=== PATIENT | female | born 1950 | race Hispanic/Latino ===

== ENCOUNTER 2017-04-06 18:13 | Inpatient (IN) | payer OTHER, MEDICARE ==
[~2017-04-06] VITALS: Ht 157.5 cm; Wt 113.9 kg
[~2017-04-06 18:13] MED LIST: ADV500 IH; ALBU2.5V2 IH; BACL10TA PO; BIOT5000 PO; CRAN200C PO; CYCL30DR OU; DIPH25 PO; DOXE100C4 PO; FERR-82 PO; GABA-531 PO; HYDR200T4 PO; HYDR4TAB56 PO; IPRA4AER IH; METO-391 PO; MULT-1271 PO; NITR.4P TD; NITR0.4T50 SL; ONDA4TAB9 PO; PRAV40TA3 PO; RIVA20TA PO; SERT100T12 PO; TEMA30CA PO; VALA500T38 PO
[2017-04-06 19:05] LABS: HEMATOCRIT 30.6 % (36-48); MEAN CORPUSCULAR HEMOGLOBIN 30.7 pg (27.0-33.0); MEAN CORPUSCULAR HGB CONC 33.3 g/dL (32.0-36.0); MEAN CORPUSCULAR VOLUME 92.2 fL (79-99); PLATELET COUNT (AUTO) 286 K/uL (130-400); RED BLOOD CELL COUNT(AUTO) 3.32 MIL/uL (4.00-5.50); RED CELL DISTRIBUTION WIDTH 14.2 % (11.0-15.5); WHITE BLOOD COUNT (AUTO) 12.2 K/uL (4.8-10.8)
[2017-04-06 19:21] LABS: ALBUMIN 3.5 g/dL (3.5-5.0); BILIRUBIN,TOTAL 0.2 mg/dL (0.2-1.0); TOTAL PROTEIN, SERUM 7.3 g/dL (6.0-8.3)
[2017-04-06 19:25] LABS: POTASSIUM 2.9 mmol/L (3.5-5.1)
[2017-04-06 19:30] LABS: BAND NEUTROPHILS % (MANUAL) 1 % (0-2); LYMPHOCYTES % (MANUAL) 7 % (22-44); MAN.DIFF COMMENT-IMPRESSION MANUAL DIFFERENTIAL; METAMYELOCYTES % 1 % (0-0); MONOCYTES % (MANUAL) 5 % (2-9); SEGMENTED NEUTROPHILS % 86 % (40-70)
[2017-04-06 19:31] LABS: PLATELET MORPHOLOGY COMMENT ADEQUATE
[2017-04-06 19:42] LABS: INR 0.93 (0.85-1.15); PARTIAL THROMBOPLASTIN TIME 28.1 SEC (26.3-35.5); PROTHROMBIN TIME 9.8 SEC (9.6-11.6)
[2017-04-06] MEDS ORDERED: POTASSIUM BICARB/CIT AC 25 MEQ TABLET.EFF ONE (21:35)
[2017-04-06] MEDS ORDERED: HYDROMORPHONE HCL 0.5 MG/0.5 ML ML ONE (21:36)
[2017-04-06] MEDS ORDERED: SODIUM CHLORIDE 0.9% 1000ML 1,000 ML IV ONE (21:41)
[2017-04-06] MEDS ORDERED: ACETAMINOPHEN 325 MG TAB ONE (23:06)
[2017-04-07] MEDS ORDERED: HYDROMORPHONE HCL 0.5 MG/0.5 ML ML ONE (00:53)
[2017-04-07] MEDS: SODIUM CHLORIDE 0.9% 1000ML 1,000 ML IV SCH ×3 (00:53→21:31)
[2017-04-07] MEDS ORDERED: GUAIFENESIN-DM 200/20 MG 10 ML PO PRN (01:00)
[2017-04-07] MEDS ORDERED: HYDRALAZINE HCL 20 MG/ML VIAL IV PRN (01:00)
[2017-04-07] MEDS ORDERED: POTASSIUM CHLORIDE 10% ELIXIR 20 MEQ/15 ML UDCUP PO PRN (01:00)
[2017-04-07] MEDS ORDERED: HYDROMORPHONE 1 MG/1 ML AMP IV PRN (01:00)
[2017-04-07] MEDS ORDERED: ONDANSETRON HCL 4 MG/2 ML VIAL IV PRN (01:00)
[2017-04-07] MEDS ORDERED: DiphenhydrAMINE HCL 50 MG/ML VIAL IV PRN (01:00)
[2017-04-07] MEDS ORDERED: NITROGLYCERIN 0.4 MG SL TAB SL PRN (01:00)
[2017-04-07] MEDS ORDERED: DEXTROSE 50%-WATER 50 ML DISP.SYRIN IV PRN (01:00)
[2017-04-07] MEDS ORDERED: LACTULOSE 20 GM/30 ML UDCUP PO PRN (01:00)
[2017-04-07] MEDS ORDERED: GLUCAGON 1MG KIT 1 MG ML IM PRN (01:00)
[2017-04-07] MEDS: LIDOCAINE HCL-MPF 1% 2ML VIAL IVP PRN ×2 (02:34→23:30)
[2017-04-07] MEDS: POTASSIUM CHLORIDE 20MEQ/100ML 100 ML IV PRN ×2 (02:34→23:30)
[2017-04-07] MEDS: AZITHROMYCIN 500MG+NS 250ML 250 ML IV SCH (02:37)
[2017-04-07] MEDS ORDERED: IPRATROPIUM/ALBUTEROL SULFATE 3 ML SOLUTION IH PRN (03:30)
[2017-04-07] MEDS ORDERED: GABAPENTIN 300 MG CAPSULE PO PRN (03:30)
[2017-04-07] MEDS ORDERED: DIPHENHYDRAMINE HCL 25 MG CAPSULE PO PRN (03:30)
[2017-04-07] MEDS ORDERED: BACLOFEN 10 MG TABLET PO PRN (03:30)
[2017-04-07 03:45] VITALS: BP 126/67
[2017-04-07] MEDS ORDERED: FURO20TA4 PO (03:52)
[2017-04-07] MEDS ORDERED: AEC81 PO (03:52)
[2017-04-07] MEDS ORDERED: LOSA1TAB37 PO (03:52)
[2017-04-07] MEDS ORDERED: PRED2.5T PO (03:52)
[2017-04-07] MEDS ORDERED: OMEP20CA10 PO (03:52)
[2017-04-07 05:19] LABS: HEMATOCRIT 26.1 % (36-48); MEAN CORPUSCULAR HEMOGLOBIN 31.8 pg (27.0-33.0); MEAN CORPUSCULAR HGB CONC 34.4 g/dL (32.0-36.0); MEAN CORPUSCULAR VOLUME 92.2 fL (79-99); PLATELET COUNT (AUTO) 241 K/uL (130-400); RED BLOOD CELL COUNT(AUTO) 2.83 MIL/uL (4.00-5.50); RED CELL DISTRIBUTION WIDTH 14.1 % (11.0-15.5); WHITE BLOOD COUNT (AUTO) 9.4 K/uL (4.8-10.8)
[2017-04-07 05:25] LABS: CREATININE 0.8 mg/dL (0.5-1.5)
[2017-04-07 05:29] LABS: POTASSIUM 2.9 mmol/L (3.5-5.1)
[2017-04-07] MEDS ORDERED: MAGNESIUM 2GM PREMIX 50ML 50 ML IV PRN (06:15)
[2017-04-07] MEDS: IPRATROPIUM/ALBUTEROL SULFATE 3 ML SOLUTION IH SCH ×3 (06:27→21:02)
[2017-04-07] MEDS: INSULIN HUMULIN R 100 UNIT/ML 3ML SQ SCH ×2 (06:28→21:00)
[2017-04-07 06:34] LABS: ERYTHROCYTE SEDIMENTATION RATE 81 MM/HR (0-15)
[2017-04-07 08:54] VITALS: BP 128/57
[2017-04-07] MEDS: FLUTICASONE/VILANTEROL 1 EACH BLST.W.DEV IH SCH (09:00)
[2017-04-07] MEDS: Metoprolol Succinate 50 MG PO SCH (09:00)
[2017-04-07] MEDS ORDERED: HYDROMORPHONE HCL 2 MG/ML VIAL ONE ×2 (09:11→14:59)
[2017-04-07] MEDS: PANTOPRAZOLE SODIUM 40 MG TABLET.DR PO SCH (09:27)
[2017-04-07] MEDS: LOSARTAN/HYDROCHLOROTHIAZIDE 50-12.5MG TABLET PO SCH (09:27)
[2017-04-07] MEDS: FAMOTIDINE 20MG TAB 20 MG TAB PO SCH ×2 (09:27→21:17)
[2017-04-07] MEDS: PREDNISONE 5 MG TABLET PO SCH (09:27)
[2017-04-07] MEDS: ASPIRIN 81 MG EC TAB PO SCH (09:27)
[2017-04-07] MEDS: FUROSEMIDE 20 MG TABLET PO SCH (09:28)
[2017-04-07] MEDS: POTASSIUM CHLORIDE 20 MEQ ERTAB PO PRN ×3 (09:29→23:30)
[2017-04-07 12:46] VITALS: BP 125/77
[2017-04-07 17:59] VITALS: BP 135/68
[2017-04-07 19:30] VITALS: BP 153/68
[2017-04-07] MEDS: RESTASIS 0.05% OU SCH (21:00)
[2017-04-07] MEDS: OPTHALMIC EMULSION OU SCH (21:00)
[2017-04-07] MEDS: VALACYCLOVIR HCL 500 MG TABLET PO SCH (21:16)
[2017-04-07] MEDS: RIVAROXABAN 20 MG TABLET PO SCH (21:16)
[2017-04-07] MEDS: ATORVASTATIN CALCIUM 10 MG TABLET PO SCH (21:16)
[2017-04-07] MEDS: SERTRALINE HCL 50 MG TABLET PO SCH (21:16)
[2017-04-07] MEDS: HYDROMORPHONE HCL 2 MG TAB PO PRN (21:16)
[2017-04-07] MEDS: DOXEPIN HCL 25 MG CAP PO SCH (21:18)
[2017-04-07 23:00] VITALS: BP 109/62
[2017-04-07] MEDS: ZOLPIDEM TARTRATE 5 MG TAB PO PRN (23:30)
[2017-04-08] MEDS: IPRATROPIUM/ALBUTEROL SULFATE 3 ML SOLUTION IH SCH ×4 (00:32→19:25)
[2017-04-08] MEDS: POTASSIUM CHLORIDE 20 MEQ ERTAB PO PRN ×3 (00:54→09:47)
[2017-04-08] MEDS: AZITHROMYCIN 500MG+NS 250ML 250 ML IV SCH (02:50)
[2017-04-08 03:00] VITALS: BP 143/73
[2017-04-08] MEDS: HYDROMORPHONE HCL 2 MG TAB PO PRN ×3 (04:01→21:03)
[2017-04-08 05:13] LABS: HEMATOCRIT 26.9 % (36-48); MEAN CORPUSCULAR HEMOGLOBIN 31.1 pg (27.0-33.0); MEAN CORPUSCULAR HGB CONC 33.6 g/dL (32.0-36.0); MEAN CORPUSCULAR VOLUME 92.6 fL (79-99); PLATELET COUNT (AUTO) 247 K/uL (130-400); RED CELL DISTRIBUTION WIDTH 14.2 % (11.0-15.5); WHITE BLOOD COUNT (AUTO) 6.1 K/uL (4.8-10.8)
[2017-04-08 05:21] LABS: CREATININE 0.6 mg/dL (0.5-1.5); POTASSIUM 3.4 mmol/L (3.5-5.1)
[2017-04-08] MEDS: INSULIN HUMULIN R 100 UNIT/ML 3ML SQ SCH ×4 (06:41→21:00)
[2017-04-08] MEDS: PANTOPRAZOLE SODIUM 40 MG TABLET.DR PO SCH (07:02)
[2017-04-08 08:02] VITALS: BP 131/76
[2017-04-08] MEDS: Metoprolol Succinate 50 MG PO SCH (09:00)
[2017-04-08] MEDS: FLUTICASONE/VILANTEROL 1 EACH BLST.W.DEV IH SCH (09:00)
[2017-04-08] MEDS: FUROSEMIDE 20 MG TABLET PO SCH (09:46)
[2017-04-08] MEDS: ASPIRIN 81 MG EC TAB PO SCH (09:47)
[2017-04-08] MEDS: PREDNISONE 5 MG TABLET PO SCH (09:47)
[2017-04-08] MEDS: LOSARTAN/HYDROCHLOROTHIAZIDE 50-12.5MG TABLET PO SCH (09:47)
[2017-04-08] MEDS: FAMOTIDINE 20MG TAB 20 MG TAB PO SCH ×2 (09:47→21:04)
[2017-04-08 11:30] VITALS: BP 127/73
[2017-04-08 16:51] VITALS: BP 165/89
[2017-04-08 19:00] VITALS: BP 153/58
[2017-04-08] MEDS: OPTHALMIC EMULSION OU SCH (21:00)
[2017-04-08] MEDS: RESTASIS 0.05% OU SCH (21:00)
[2017-04-08] MEDS: SODIUM CHLORIDE 0.9% 1000ML 1,000 ML IV SCH (21:03)
[2017-04-08] MEDS: ATORVASTATIN CALCIUM 10 MG TABLET PO SCH (21:04)
[2017-04-08] MEDS: DOXEPIN HCL 25 MG CAP PO SCH (21:05)
[2017-04-08] MEDS: VALACYCLOVIR HCL 500 MG TABLET PO SCH (21:05)
[2017-04-08] MEDS: RIVAROXABAN 20 MG TABLET PO SCH (21:05)
[2017-04-08] MEDS: SERTRALINE HCL 50 MG TABLET PO SCH (21:06)
[2017-04-08] MEDS: ZOLPIDEM TARTRATE 5 MG TAB PO PRN (23:56)
[2017-04-09] MEDS: IPRATROPIUM/ALBUTEROL SULFATE 3 ML SOLUTION IH SCH ×5 (00:21→23:52)
[2017-04-09 00:28] VITALS: BP 120/62
[2017-04-09 03:00] VITALS: BP 142/73
[2017-04-09] MEDS: HYDROMORPHONE HCL 2 MG TAB PO PRN ×3 (03:15→22:03)
[2017-04-09] MEDS: AZITHROMYCIN 500MG+NS 250ML 250 ML IV SCH (03:15)
[2017-04-09 05:28] LABS: MEAN CORPUSCULAR HEMOGLOBIN 31.6 pg (27.0-33.0); MEAN CORPUSCULAR VOLUME 92.7 fL (79-99); PLATELET COUNT (AUTO) 253 K/uL (130-400); RED BLOOD CELL COUNT(AUTO) 2.91 MIL/uL (4.00-5.50); RED CELL DISTRIBUTION WIDTH 14.4 % (11.0-15.5); WHITE BLOOD COUNT (AUTO) 6.3 K/uL (4.8-10.8)
[2017-04-09 05:41] LABS: ALBUMIN 2.6 g/dL (3.5-5.0); B-TYPE NATRIURETIC PEPTIDE 130 pg/mL (0-100); BILIRUBIN,TOTAL 0.2 mg/dL (0.2-1.0); CREATININE 0.7 mg/dL (0.5-1.5); POTASSIUM 4.1 mmol/L (3.5-5.1)
[2017-04-09] MEDS: INSULIN HUMULIN R 100 UNIT/ML 3ML SQ SCH ×4 (07:30→21:00)
[2017-04-09 08:00] VITALS: BP 144/78
[2017-04-09] MEDS: Metoprolol Succinate 50 MG PO SCH (09:00)
[2017-04-09] MEDS: FLUTICASONE/VILANTEROL 1 EACH BLST.W.DEV IH SCH (09:00)
[2017-04-09] MEDS: ASPIRIN 81 MG EC TAB PO SCH (10:20)
[2017-04-09] MEDS: LOSARTAN/HYDROCHLOROTHIAZIDE 50-12.5MG TABLET PO SCH (10:20)
[2017-04-09] MEDS: PREDNISONE 5 MG TABLET PO SCH (10:20)
[2017-04-09] MEDS: PANTOPRAZOLE SODIUM 40 MG TABLET.DR PO SCH (10:20)
[2017-04-09] MEDS: FAMOTIDINE 20MG TAB 20 MG TAB PO SCH ×2 (10:21→22:02)
[2017-04-09] MEDS: FUROSEMIDE 20 MG TABLET PO SCH (10:25)
[2017-04-09 12:00] VITALS: BP 146/76
[2017-04-09 16:00] VITALS: BP 162/88
[2017-04-09] MEDS: RIVAROXABAN 20 MG TABLET PO SCH (18:12)
[2017-04-09 19:00] VITALS: BP 167/90
[2017-04-09] MEDS: RESTASIS 0.05% OU SCH (21:00)
[2017-04-09] MEDS: OPTHALMIC EMULSION OU SCH (21:00)
[2017-04-09] MEDS: DOXEPIN HCL 25 MG CAP PO SCH (22:01)
[2017-04-09] MEDS: ATORVASTATIN CALCIUM 10 MG TABLET PO SCH (22:02)
[2017-04-09] MEDS: VALACYCLOVIR HCL 500 MG TABLET PO SCH (22:02)
[2017-04-09] MEDS: SERTRALINE HCL 50 MG TABLET PO SCH (22:03)
[2017-04-09] MEDS ORDERED: ACETAMINOPHEN 325 MG TAB PO PRN ×2 (23:15)
[2017-04-10] VITALS: BP 159/80
[2017-04-10] MEDS: ZOLPIDEM TARTRATE 5 MG TAB PO PRN (00:59)
[2017-04-10] MEDS: AZITHROMYCIN 500MG+NS 250ML 250 ML IV SCH (00:59)
[2017-04-10 03:00] VITALS: BP 144/84
[2017-04-10] MEDS: HYDROMORPHONE HCL 2 MG TAB PO PRN ×6 (03:19→21:44)
[2017-04-10 05:57] LABS: MEAN CORPUSCULAR HEMOGLOBIN 31.3 pg (27.0-33.0); MEAN CORPUSCULAR HGB CONC 34.1 g/dL (32.0-36.0); MEAN CORPUSCULAR VOLUME 91.7 fL (79-99); PLATELET COUNT (AUTO) 295 K/uL (130-400); RED BLOOD CELL COUNT(AUTO) 3.17 MIL/uL (4.00-5.50); RED CELL DISTRIBUTION WIDTH 14.5 % (11.0-15.5); WHITE BLOOD COUNT (AUTO) 6.6 K/uL (4.8-10.8)
[2017-04-10 06:08] LABS: B-TYPE NATRIURETIC PEPTIDE 167 pg/mL (0-100)
[2017-04-10] MEDS: IPRATROPIUM/ALBUTEROL SULFATE 3 ML SOLUTION IH SCH ×2 (06:08→19:32)
[2017-04-10 06:19] LABS: CREATININE 0.8 mg/dL (0.5-1.5); POTASSIUM 3.8 mmol/L (3.5-5.1)
[2017-04-10] MEDS: INSULIN HUMULIN R 100 UNIT/ML 3ML SQ SCH ×4 (07:30→21:00)
[2017-04-10 08:00] VITALS: BP 125/71
[2017-04-10] MEDS: PANTOPRAZOLE SODIUM 40 MG TABLET.DR PO SCH (08:00)
[2017-04-10] MEDS: PREDNISONE 5 MG TABLET PO SCH (08:00)
[2017-04-10] MEDS: Metoprolol Succinate 50 MG PO SCH (09:00)
[2017-04-10] MEDS: FLUTICASONE/VILANTEROL 1 EACH BLST.W.DEV IH SCH (09:00)
[2017-04-10] MEDS: LOSARTAN/HYDROCHLOROTHIAZIDE 50-12.5MG TABLET PO SCH (09:31)
[2017-04-10] MEDS: FUROSEMIDE 20 MG TABLET PO SCH (09:32)
[2017-04-10] MEDS: ASPIRIN 81 MG EC TAB PO SCH (09:32)
[2017-04-10] MEDS: FAMOTIDINE 20MG TAB 20 MG TAB PO SCH ×2 (09:32→21:43)
[2017-04-10 12:00] VITALS: BP 151/76
[2017-04-10 16:00] VITALS: BP 166/81
[2017-04-10] MEDS: RIVAROXABAN 20 MG TABLET PO SCH (17:31)
[2017-04-10 20:56] VITALS: BP 145/72
[2017-04-10] MEDS: RESTASIS 0.05% OU SCH (21:00)
[2017-04-10] MEDS: OPTHALMIC EMULSION OU SCH (21:00)
[2017-04-10] MEDS: ATORVASTATIN CALCIUM 10 MG TABLET PO SCH (21:43)
[2017-04-10] MEDS: SERTRALINE HCL 50 MG TABLET PO SCH (21:44)
[2017-04-10] MEDS: VALACYCLOVIR HCL 500 MG TABLET PO SCH (21:44)
[2017-04-10] MEDS: DOXEPIN HCL 25 MG CAP PO SCH (21:44)
[2017-04-11 00:03] VITALS: BP 159/73
[2017-04-11] MEDS: AZITHROMYCIN 500MG+NS 250ML 250 ML IV SCH (00:28)
[2017-04-11] MEDS: ZOLPIDEM TARTRATE 5 MG TAB PO PRN (00:37)
[2017-04-11] MEDS: IPRATROPIUM/ALBUTEROL SULFATE 3 ML SOLUTION IH SCH ×3 (01:35→10:57)
[2017-04-11 03:23] VITALS: BP 108/58
[2017-04-11] MEDS: INSULIN HUMULIN R 100 UNIT/ML 3ML SQ SCH ×2 (07:30→11:30)
[2017-04-11 08:00] VITALS: BP 139/85
[2017-04-11] MEDS: FLUTICASONE/VILANTEROL 1 EACH BLST.W.DEV IH SCH (09:00)
[2017-04-11] MEDS: Metoprolol Succinate 50 MG PO SCH (09:00)
[2017-04-11] MEDS: FAMOTIDINE 20MG TAB 20 MG TAB PO SCH (09:43)
[2017-04-11] MEDS: PANTOPRAZOLE SODIUM 40 MG TABLET.DR PO SCH (09:43)
[2017-04-11] MEDS: PREDNISONE 5 MG TABLET PO SCH (09:43)
[2017-04-11] MEDS: LOSARTAN/HYDROCHLOROTHIAZIDE 50-12.5MG TABLET PO SCH (09:43)
[2017-04-11] MEDS: ASPIRIN 81 MG EC TAB PO SCH (09:44)
[2017-04-11] MEDS: FUROSEMIDE 20 MG TABLET PO SCH (09:44)
[2017-04-11] MEDS: HYDROMORPHONE HCL 2 MG TAB PO PRN ×2 (09:48→15:40)
[2017-04-11 12:00] VITALS: BP 132/75
[2017-04-11] MEDS ORDERED: HEPARIN SODIUM/PF 100UNIT/ML 5ML SYRINGE IV SCH (14:45)
[2017-06-01] MEDS ORDERED: NITR1PAT10 TD (16:56)
[2017-06-01] MEDS ORDERED: TEMA30CA PO (16:56)
== END 2017-04-11 15:00 | disposition home or self-care (01) | DRG 191 ==
LOC: EDH 18:13 → EDHIP 18:14 → 4CH 04-07 01:30
PROVIDERS: ADMIT Family Medicine; ATTEND Family Medicine
DX: J44.1 Chronic obstructive pulmonary disease with (acute) exacerbation (principal); J45.901 Unspecified asthma with (acute) exacerbation; M32.9 Systemic lupus erythematosus, unspecified; Z99.81 Dependence on supplemental oxygen; M35.00 Sjogren syndrome, unspecified; Z68.42 Body mass index [BMI] 45.0-49.9, adult; J98.11 Atelectasis; E78.5 Hyperlipidemia, unspecified; I25.10 Atherosclerotic heart disease of native coronary artery without angina pectoris; I10 Essential (primary) hypertension; M19.90 Unspecified osteoarthritis, unspecified site; I73.00 Raynaud's syndrome without gangrene; E66.9 Obesity, unspecified; G40.909 Epilepsy, unspecified, not intractable, without status epilepticus; G89.4 Chronic pain syndrome; Z79.01 Long term (current) use of anticoagulants; Z95.0 Presence of cardiac pacemaker; Z98.84 Bariatric surgery status; Z90.49 Acquired absence of other specified parts of digestive tract; Z88.8 Allergy status to other drugs, medicaments and biological substances; Z88.7 Allergy status to serum and vaccine
CPT/HCPCS: 36415; 70450; 71046; 80048; 80053; 82550; 82553; 82948; 83735; 83880; 84484; 85025; 85027; 85610; 85651; 85730; 87804; 94640; 94664; J0456; J1170; J1642; J3475; J3480; J3490; J7030; J7512

== ENCOUNTER 2017-06-02 09:22 | Day surgery (SDC) | payer MEDICARE, OTHER ==
[2017-06-01 16:48] LABS: BASOPHILS % (AUTO) 0.6 % (0.0-5.0); EOSINOPHILS % (AUTO) 2.7 % (0.0-8.0); HEMATOCRIT 36.1 % (36-48); LYMPHOCYTES % (AUTO) 28.6 % (21.0-51.0); MEAN CORPUSCULAR HEMOGLOBIN 31.3 pg (27.0-33.0); MEAN CORPUSCULAR HGB CONC 33.9 g/dL (32.0-36.0); MEAN CORPUSCULAR VOLUME 92.2 fL (79-99); MONOCYTES % (AUTO) 7.5 % (3.0-13.0); NEUTROPHILS % (AUTO) 60.6 % (40.0-77.0); PLATELET COUNT (AUTO) 303 K/uL (130-400); RED BLOOD CELL COUNT(AUTO) 3.91 MIL/uL (4.00-5.50); RED CELL DISTRIBUTION WIDTH 15.2 % (11.0-15.5); WHITE BLOOD COUNT (AUTO) 6.9 K/uL (4.8-10.8)
[2017-06-01 16:50] VITALS: BP 124/76
[2017-06-01 16:55] LABS: CREATININE 0.8 mg/dL (0.5-1.5); POTASSIUM 4.3 mmol/L (3.5-5.1)
[2017-06-02] VITALS (19 sets, daily range): BP systolic 137–179; BP diastolic 71–92
[~2017-06-02] VITALS: Ht 157.5 cm; Wt 111.2 kg
[~2017-06-02 09:22] MED LIST changes: -ALBU2.5V2 IH; -BIOT5000 PO; +CEFAZOLIN 3GM /D5W 100ML 100 ML IV SCH; -CRAN200C PO; -CYCL30DR OU; -FERR-82 PO; +FURO20TA4 PO; -HYDR200T4 PO; +LOSA1TAB37 PO; -MULT-1271 PO; -NITR.4P TD; -NITR0.4T50 SL; +NITR1PAT10 TD; +OMEP20CA10 PO; -ONDA4TAB9 PO; +PRED2.5T PO
[2017-06-02] MEDS ORDERED: SODIUM CHLORIDE 0.9% 1000ML 1,000 ML IV ONE (10:05)
[2017-06-02] MEDS ORDERED: CEFAZOLIN SODIUM 1 GM VIAL ONE (10:05)
[2017-06-02] MEDS: CEFAZOLIN SODIUM 1 GM VIAL ONE ×2 (10:32→12:30)
[2017-06-02] MEDS ORDERED: AUD IH (10:40)
[2017-06-02] MEDS ORDERED: EPINEPHRINE 1 MG/ML 30ML VIAL IJ ONE (11:23)
[2017-06-02] MEDS ORDERED: FENTANYL CITRATE PF 50 MCG/1 ML 2ML VIAL ONE ×2 (11:55→12:54)
[2017-06-02] MEDS ORDERED: PROPOFOL 10 MG/ML 20ML VIAL IV ONE (11:55)
[2017-06-02] MEDS ORDERED: ONDANSETRON HCL 4 MG/2 ML VIAL ONE ×3 (11:55→14:57)
[2017-06-02] MEDS ORDERED: MIDAZOLAM HCL 1 MG/ML 2ML VIAL ONE (11:55)
[2017-06-02] MEDS ORDERED: SUCCINYLCHOLINE 200MG/10ML SYR ONE (11:55)
[2017-06-02] MEDS ORDERED: LIDOCAINE PF 2% 5ML ABBOJECT ONE (11:55)
[2017-06-02] MEDS ORDERED: DEXAMETHASONE SOD PHOSPHATE 10MG/ML 1ML VIAL ONE (11:55)
[2017-06-02] MEDS ORDERED: NEOSTIGMINE 5MG/5ML SYR IV ONE (14:06)
[2017-06-02] MEDS ORDERED: CEPH500B PO (16:40)
== END 2017-06-02 17:24 | disposition home or self-care (01) ==
LOC: DAH 09:22 → EDSTATUS 14:30 → DAH 17:24
PROVIDERS: ATTEND Orthopaedic Surgery
DX: S46.211A Strain of muscle, fascia and tendon of other parts of biceps, right arm, initial encounter (principal); X58.XXXA Exposure to other specified factors, initial encounter; Y93.9 Activity, unspecified; Y92.89 Other specified places as the place of occurrence of the external cause; Y99.9 Unspecified external cause status; M75.01 Adhesive capsulitis of right shoulder; G89.29 Other chronic pain; M94.211 Chondromalacia, right shoulder; Z68.41 Body mass index [BMI] 40.0-44.9, adult; Z79.899 Other long term (current) drug therapy; J45.909 Unspecified asthma, uncomplicated; K21.9 Gastro-esophageal reflux disease without esophagitis; I25.119 Atherosclerotic heart disease of native coronary artery with unspecified angina pectoris; E78.5 Hyperlipidemia, unspecified; I10 Essential (primary) hypertension; M32.9 Systemic lupus erythematosus, unspecified; Z95.0 Presence of cardiac pacemaker; Z86.73 Personal history of transient ischemic attack (TIA), and cerebral infarction without residual deficits; Z98.890 Other specified postprocedural states; Z90.49 Acquired absence of other specified parts of digestive tract; Z90.710 Acquired absence of both cervix and uterus
CPT/HCPCS: 29822; 29828; 36415; 80048; 82948 ×2; 85025; A4218 ×2; A4565; A4649 ×3; A4930; A6204; J0171; J0330; J0690 ×2; J1100; J2001; J2250; J2405 ×3; J2704; J2710; J3010 ×2; J7030 ×2

== ENCOUNTER 2017-06-23 14:27 | Observation (INO) | payer OTHER ==
[~2017-06-23] VITALS: Ht 157.5 cm; Wt 68.0 kg
[~2017-06-23 14:27] MED LIST changes: +AUD IH; -CEFAZOLIN 3GM /D5W 100ML 100 ML IV SCH; +CEPH500B PO
[2017-06-23 15:49] LABS: BASOPHILS % (AUTO) 0.6 % (0.0-5.0); EOSINOPHILS % (AUTO) 2.6 % (0.0-8.0); HEMATOCRIT 30.6 % (36-48); MEAN CORPUSCULAR HEMOGLOBIN 31.6 pg (27.0-33.0); MEAN CORPUSCULAR HGB CONC 34.7 g/dL (32.0-36.0); MONOCYTES % (AUTO) 9.4 % (3.0-13.0); NEUTROPHILS % (AUTO) 58.4 % (40.0-77.0); PLATELET COUNT (AUTO) 233 K/uL (130-400); RED BLOOD CELL COUNT(AUTO) 3.36 MIL/uL (4.00-5.50); RED CELL DISTRIBUTION WIDTH 14.7 % (11.0-15.5); WHITE BLOOD COUNT (AUTO) 8.3 K/uL (4.8-10.8)
[2017-06-23] MEDS ORDERED: HYDROMORPHONE 1 MG/1 ML AMP ONE ×2 (15:55→20:59)
[2017-06-23] MEDS ORDERED: ONDANSETRON HCL MDV 20ML 2 MG/ML VIAL ONE (15:56)
[2017-06-23] MEDS ORDERED: SODIUM CHLORIDE 0.9% 1000ML 1,000 ML IV ONE (16:07)
[2017-06-23] MEDS ORDERED: METHYLPREDNISOLONE SOD SUCC 125MG/2ML VIAL ONE (16:07)
[2017-06-23 16:10] LABS: ALBUMIN 3.4 g/dL (3.5-5.0); BILIRUBIN,TOTAL 0.3 mg/dL (0.2-1.0); TOTAL PROTEIN, SERUM 7.2 g/dL (6.0-8.3)
[2017-06-23 16:23] LABS: POTASSIUM 2.9 mmol/L (3.5-5.1)
[2017-06-23 17:17] VITALS: BP 145/73
[2017-06-23 19:00] VITALS: BP 155/79
[2017-06-23] MEDS ORDERED: SODIUM CHLORIDE 0.9% 1000ML 1,000 ML IV SCH (19:30)
[2017-06-23] MEDS ORDERED: HYDROMORPHONE 4MG/ML 1ML VIAL IV PRN (19:30)
[2017-06-23] MEDS: ONDANSETRON HCL MDV 20ML 2 MG/ML VIAL IVP PRN (21:03)
[2017-06-23] MEDS ORDERED: LIDOCAINE HCL-MPF 1% 2ML VIAL IVP PRN (21:45)
[2017-06-23] MEDS ORDERED: POTASSIUM CHLORIDE 20MEQ/100ML 100 ML IV PRN (21:45)
[2017-06-23] MEDS ORDERED: POTASSIUM CHLORIDE 10% ELIXIR 20 MEQ/15 ML UDCUP PO PRN (21:45)
[2017-06-23] MEDS: METHYLPREDNISOLONE SOD SUCC 125MG/2ML VIAL IVP SCH (22:17)
[2017-06-24 00:05] VITALS: BP 119/54
[2017-06-24] MEDS ORDERED: HYDROMORPHONE 1 MG/1 ML AMP ONE ×4 (02:44→23:46)
[2017-06-24] MEDS: ONDANSETRON HCL MDV 20ML 2 MG/ML VIAL IVP PRN ×4 (02:54→23:49)
[2017-06-24 04:25] VITALS: BP 140/76
[2017-06-24 04:34] LABS: POTASSIUM 3.4 mmol/L (3.5-5.1)
[2017-06-24] MEDS: METHYLPREDNISOLONE SOD SUCC 125MG/2ML VIAL IVP SCH ×4 (05:26→21:41)
[2017-06-24 08:00] VITALS: BP 166/77
[2017-06-24] MEDS: FAMOTIDINE 20MG TAB 20 MG TAB PO SCH ×2 (08:10→21:37)
[2017-06-24] MEDS ORDERED: TEMAZEPAM 30 MG CAP PO PRN (09:00)
[2017-06-24] MEDS: ATORVASTATIN CALCIUM 10 MG TABLET PO SCH (09:24)
[2017-06-24] MEDS: RIVAROXABAN 20 MG TABLET PO SCH (09:24)
[2017-06-24] MEDS: LOSARTAN/HYDROCHLOROTHIAZIDE 50-12.5MG TABLET PO SCH (09:24)
[2017-06-24] MEDS: METOPROLOL TARTRATE 25 MG TAB PO SCH ×2 (09:54→21:37)
[2017-06-24 12:00] VITALS: BP 149/77
[2017-06-24] MEDS: ALBUTEROL SULFATE 0.083% 2.5 MG/3 ML INH IH SCH ×3 (13:41→23:48)
[2017-06-24 16:00] VITALS: BP 155/79
[2017-06-24] MEDS: BUDESONIDE 0.5 MG/2 ML INH IH SCH (18:30)
[2017-06-24 19:50] VITALS: BP 148/80
[2017-06-24] MEDS: POTASSIUM CHLORIDE 20 MEQ ERTAB PO PRN (21:41)
[2017-06-25] VITALS (7 sets, daily range): BP systolic 127–164; BP diastolic 62–84
[2017-06-25] MEDS ORDERED: HYDROMORPHONE 1 MG/1 ML AMP ONE ×3 (04:13→22:22)
[2017-06-25] MEDS: METHYLPREDNISOLONE SOD SUCC 125MG/2ML VIAL IVP SCH ×4 (04:21→22:45)
[2017-06-25] MEDS: ONDANSETRON HCL MDV 20ML 2 MG/ML VIAL IVP PRN ×2 (04:36→16:02)
[2017-06-25 04:39] LABS: HEMATOCRIT 31.5 % (36-48); MEAN CORPUSCULAR HEMOGLOBIN 31.3 pg (27.0-33.0); MEAN CORPUSCULAR HGB CONC 34.5 g/dL (32.0-36.0); MEAN CORPUSCULAR VOLUME 90.7 fL (79-99); PLATELET COUNT (AUTO) 229 K/uL (130-400); RED BLOOD CELL COUNT(AUTO) 3.47 MIL/uL (4.00-5.50); RED CELL DISTRIBUTION WIDTH 14.6 % (11.0-15.5); WHITE BLOOD COUNT (AUTO) 16.7 K/uL (4.8-10.8)
[2017-06-25 04:52] LABS: CREATININE 0.9 mg/dL (0.5-1.5); POTASSIUM 3.4 mmol/L (3.5-5.1)
[2017-06-25] MEDS: BUDESONIDE 0.5 MG/2 ML INH IH SCH ×2 (05:51→18:54)
[2017-06-25] MEDS: ALBUTEROL SULFATE 0.083% 2.5 MG/3 ML INH IH SCH ×4 (05:51→23:26)
[2017-06-25] MEDS: POTASSIUM CHLORIDE 20 MEQ ERTAB PO PRN ×3 (06:43→10:07)
[2017-06-25] MEDS: LOSARTAN/HYDROCHLOROTHIAZIDE 50-12.5MG TABLET PO SCH (10:06)
[2017-06-25] MEDS: METOPROLOL TARTRATE 25 MG TAB PO SCH ×2 (10:06→22:25)
[2017-06-25] MEDS: RIVAROXABAN 20 MG TABLET PO SCH (10:06)
[2017-06-25] MEDS: ATORVASTATIN CALCIUM 10 MG TABLET PO SCH (10:06)
[2017-06-25] MEDS: DIPHENHYDRAMINE HCL 25 MG CAPSULE PO SCH ×2 (10:06→22:16)
[2017-06-25] MEDS: FAMOTIDINE 20MG TAB 20 MG TAB PO SCH ×2 (10:06→22:17)
[2017-06-25] MEDS: NYSTATIN 100000 UNIT/ML 5ML UDCUP PO SCH ×4 (10:07→22:16)
[2017-06-25 13:56] LABS: APPEARANCE,URINE Clear (CLEAR); BILIRUBIN,URINE Negative (NEGATIVE); COLOR,URINE Yellow (YELLOW); GLUCOSE, URINE (UA) Negative (NEGATIVE); KETONES,URINE Negative (NEGATIVE); LEUKOCYTE ESTERASE ,URINE Trace (NEGATIVE); NITRATE,URINE Negative (NEGATIVE); OCCULT BLOOD,URINE Large (NEGATIVE); PH,URINE 5.5 (5.0-8.0); PROTEIN,URINE Negative (NEGATIVE)
[2017-06-25 14:59] LABS: RBC,URINE 26-50 /HPF (0-1); WBC,URINE 0-1 /HPF (0-1)
[2017-06-25 15:00] LABS: BACTERIA,URINE Rare /HPF (None Seen); SQUAMOUS EPITHELIAL CELL,UR Rare /HPF (0-2)
[2017-06-26 03:54] VITALS: BP 181/96
[2017-06-26] MEDS: METHYLPREDNISOLONE SOD SUCC 125MG/2ML VIAL IVP SCH ×3 (04:00→22:21)
[2017-06-26] MEDS ORDERED: HYDROMORPHONE 1 MG/1 ML AMP ONE ×3 (04:03→09:08)
[2017-06-26] MEDS: HYDRALAZINE HCL 20 MG/ML VIAL IV PRN (04:05)
[2017-06-26] MEDS: ONDANSETRON HCL MDV 20ML 2 MG/ML VIAL IVP PRN ×3 (04:12→22:34)
[2017-06-26] MEDS: BUDESONIDE 0.5 MG/2 ML INH IH SCH ×2 (06:19→18:55)
[2017-06-26] MEDS: ALBUTEROL SULFATE 0.083% 2.5 MG/3 ML INH IH SCH ×4 (06:19→23:13)
[2017-06-26 08:10] VITALS: BP 122/70
[2017-06-26] MEDS: ATORVASTATIN CALCIUM 10 MG TABLET PO SCH (09:27)
[2017-06-26] MEDS: DIPHENHYDRAMINE HCL 25 MG CAPSULE PO SCH ×2 (09:27→20:21)
[2017-06-26] MEDS: RIVAROXABAN 20 MG TABLET PO SCH (09:27)
[2017-06-26] MEDS: METOPROLOL TARTRATE 25 MG TAB PO SCH ×2 (09:27→20:22)
[2017-06-26] MEDS: FAMOTIDINE 20MG TAB 20 MG TAB PO SCH ×2 (09:27→20:22)
[2017-06-26] MEDS: LOSARTAN/HYDROCHLOROTHIAZIDE 50-12.5MG TABLET PO SCH (09:27)
[2017-06-26] MEDS: NYSTATIN 100000 UNIT/ML 5ML UDCUP PO SCH ×2 (09:30→20:21)
[2017-06-26] MEDS ORDERED: OXYCODONE HCL 5 MG TAB PO PRN (11:30)
[2017-06-26 12:15] VITALS: BP 138/77
[2017-06-26] MEDS ORDERED: HYDROMORPHONE HCL 0.5 MG/0.5 ML ML ONE (15:26)
[2017-06-26 16:52] VITALS: BP 175/86
[2017-06-26 19:12] VITALS: BP 138/73
[2017-06-26] MEDS: HYDROMORPHONE 1 MG/1 ML AMP IV PRN (22:24)
[2017-06-26] MEDS ORDERED: ONDANSETRON HCL MDV 20ML 2 MG/ML VIAL IVP ONE (22:32)
[2017-06-26 23:22] VITALS: BP 166/89
[2017-06-27] MEDS: HYDRALAZINE HCL 20 MG/ML VIAL IV PRN ×2 (00:07→23:54)
[2017-06-27] MEDS ORDERED: ONDANSETRON HCL MDV 20ML 2 MG/ML VIAL IVP ONE (03:04)
[2017-06-27] MEDS: HYDROMORPHONE 1 MG/1 ML AMP IV PRN ×5 (03:19→22:49)
[2017-06-27] MEDS: ONDANSETRON HCL MDV 20ML 2 MG/ML VIAL IVP PRN ×5 (03:23→22:44)
[2017-06-27] MEDS: METHYLPREDNISOLONE SOD SUCC 125MG/2ML VIAL IVP SCH ×3 (03:25→21:32)
[2017-06-27 03:42] VITALS: BP 152/73
[2017-06-27 05:33] LABS: HEMATOCRIT 32.7 % (36-48); MEAN CORPUSCULAR HEMOGLOBIN 31.1 pg (27.0-33.0); MEAN CORPUSCULAR VOLUME 91.4 fL (79-99); PLATELET COUNT (AUTO) 260 K/uL (130-400); RED BLOOD CELL COUNT(AUTO) 3.57 MIL/uL (4.00-5.50); RED CELL DISTRIBUTION WIDTH 15.1 % (11.0-15.5); WHITE BLOOD COUNT (AUTO) 11.1 K/uL (4.8-10.8)
[2017-06-27 05:38] LABS: CREATININE 1.1 mg/dL (0.5-1.5); POTASSIUM 3.3 mmol/L (3.5-5.1)
[2017-06-27] MEDS: ALBUTEROL SULFATE 0.083% 2.5 MG/3 ML INH IH SCH ×4 (06:23→23:19)
[2017-06-27] MEDS: BUDESONIDE 0.5 MG/2 ML INH IH SCH ×2 (06:23→18:54)
[2017-06-27] MEDS ORDERED: HYDROMORPHONE HCL 0.5 MG/0.5 ML ML ONE (07:12)
[2017-06-27 07:38] VITALS: BP 172/77
[2017-06-27] MEDS: METOPROLOL TARTRATE 25 MG TAB PO SCH ×2 (08:39→21:32)
[2017-06-27] MEDS: LOSARTAN/HYDROCHLOROTHIAZIDE 50-12.5MG TABLET PO SCH (08:39)
[2017-06-27] MEDS: RIVAROXABAN 20 MG TABLET PO SCH (08:39)
[2017-06-27] MEDS: ATORVASTATIN CALCIUM 10 MG TABLET PO SCH (08:39)
[2017-06-27] MEDS: DIPHENHYDRAMINE HCL 25 MG CAPSULE PO SCH ×2 (08:39→21:32)
[2017-06-27] MEDS: FAMOTIDINE 20MG TAB 20 MG TAB PO SCH ×2 (08:39→21:32)
[2017-06-27] MEDS: NYSTATIN 100000 UNIT/ML 5ML UDCUP PO SCH ×4 (08:40→21:32)
[2017-06-27] MEDS: POTASSIUM CHLORIDE 20 MEQ ERTAB PO PRN ×3 (08:40→17:48)
[2017-06-27 12:36] VITALS: BP 175/95
[2017-06-27 16:16] VITALS: BP 158/89
[2017-06-27 19:33] VITALS: BP 140/69
[2017-06-27 23:13] VITALS: BP 180/90
[2017-06-28 00:45] VITALS: BP 137/67
[2017-06-28 03:25] VITALS: BP 180/99
[2017-06-28] MEDS: HYDROMORPHONE 1 MG/1 ML AMP IV PRN (03:34)
[2017-06-28] MEDS: ONDANSETRON HCL MDV 20ML 2 MG/ML VIAL IVP PRN ×2 (03:34→08:17)
[2017-06-28] MEDS ORDERED: HYDROMORPHONE HCL 2 MG/ML VIAL IVP PRN (05:00)
[2017-06-28] MEDS: METHYLPREDNISOLONE SOD SUCC 125MG/2ML VIAL IVP SCH (05:41)
[2017-06-28] MEDS: ALBUTEROL SULFATE 0.083% 2.5 MG/3 ML INH IH SCH ×2 (06:13→11:23)
[2017-06-28] MEDS: BUDESONIDE 0.5 MG/2 ML INH IH SCH (06:13)
[2017-06-28 08:00] VITALS: BP 148/77
[2017-06-28] MEDS: FAMOTIDINE 20MG TAB 20 MG TAB PO SCH (08:18)
[2017-06-28] MEDS: POTASSIUM CHLORIDE 20 MEQ ERTAB PO PRN ×2 (08:18→11:07)
[2017-06-28] MEDS: NYSTATIN 100000 UNIT/ML 5ML UDCUP PO SCH ×2 (08:18→13:00)
[2017-06-28] MEDS: METOPROLOL TARTRATE 25 MG TAB PO SCH (08:18)
[2017-06-28] MEDS: ATORVASTATIN CALCIUM 10 MG TABLET PO SCH (08:18)
[2017-06-28] MEDS: DIPHENHYDRAMINE HCL 25 MG CAPSULE PO SCH (08:18)
[2017-06-28] MEDS: RIVAROXABAN 20 MG TABLET PO SCH (08:18)
[2017-06-28 11:00] VITALS: BP 164/87
[2017-06-28] MEDS: LOSARTAN/HYDROCHLOROTHIAZIDE 50-12.5MG TABLET PO SCH (11:19)
[2017-06-28] MEDS ORDERED: METHYLPREDNISOLONE SOD SUCC 40MG/ML 1ML IVP SCH (14:00)
[2017-06-28] MEDS ORDERED: HEPARIN SODIUM/PF 100UNIT/ML 5ML SYRINGE IV SCH (14:45)
== END 2017-06-28 17:30 | disposition home health service (06) ==
LOC: EDH 14:27 → DAHIP 14:28 → INTOOBSV 14:28 → 3AH 17:11
PROVIDERS: ADMIT Internal Medicine Hematology & Oncology; ATTEND Internal Medicine Hematology & Oncology
DX: M32.9 Systemic lupus erythematosus, unspecified (principal); M35.00 Sjogren syndrome, unspecified; E11.9 Type 2 diabetes mellitus without complications; G89.4 Chronic pain syndrome; J45.909 Unspecified asthma, uncomplicated; I65.8 Occlusion and stenosis of other precerebral arteries; M19.90 Unspecified osteoarthritis, unspecified site; I25.10 Atherosclerotic heart disease of native coronary artery without angina pectoris; I73.00 Raynaud's syndrome without gangrene; I10 Essential (primary) hypertension; E78.5 Hyperlipidemia, unspecified; E87.6 Hypokalemia; Z85.828 Personal history of other malignant neoplasm of skin; Z90.49 Acquired absence of other specified parts of digestive tract; Z96.659 Presence of unspecified artificial knee joint; Z86.73 Personal history of transient ischemic attack (TIA), and cerebral infarction without residual deficits; Z88.1 Allergy status to other antibiotic agents; Z82.49 Family history of ischemic heart disease and other diseases of the circulatory system; Z83.2 Family history of diseases of the blood and blood-forming organs and certain disorders involving the immune mechanism; Z79.01 Long term (current) use of anticoagulants
CPT/HCPCS: 36415 ×4; 80048 ×3; 80053; 81001; 82948 ×16; 84132; 85025; 85027 ×2; 94640 ×24; 94664; 96374; 96375 ×2; 96376 ×5; 99285; G0378 ×123; J0360 ×3; J1170 ×21; J1642; J2930 ×17; J7030; Q0163 ×7

== ENCOUNTER → 2020-01-24 | Outpatient (CLI) | payer OTHER ==
[~2020-01-24] MED LIST changes: -ADV500 IH; +ASPI-556 PO; -BACL10TA PO; -CEPH500B PO; -DOXE100C4 PO; +ESOM40CA54 PO; -GABA-531 PO; -IPRA4AER IH; -METO-391 PO; -OMEP20CA10 PO; +ROPI0.257 PO; -VALA500T38 PO; +VALA500T42 PO
== END | disposition home or self-care (01) ==
LOC: SHCH 15:37
PROVIDERS: ATTEND Internal Medicine Cardiovascular Disease
DX: I87.2 Venous insufficiency (chronic) (peripheral) (principal); K21.9 Gastro-esophageal reflux disease without esophagitis
CPT/HCPCS: 93970

== ENCOUNTER → 2020-03-19 | Outpatient (CLI) | payer OTHER ==
[~2020-03-19] MED LIST changes: +IOHEXOL 350 MG/ML 100ML INFUS..BTL IV ONE; +IOHEXOL-350 50ML VIAL IV ONE
== END | disposition home or self-care (01) ==
LOC: RAH 07:36
PROVIDERS: ATTEND Internal Medicine Cardiovascular Disease
DX: K44.9 Diaphragmatic hernia without obstruction or gangrene (principal); I70.0 Atherosclerosis of aorta; I73.9 Peripheral vascular disease, unspecified; I87.2 Venous insufficiency (chronic) (peripheral)
CPT/HCPCS: 75635; Q9967 ×3

== ENCOUNTER 2020-12-13 05:52 | Day surgery (SDC) | payer MEDICARE ==
[2020-12-11 12:04] LABS: BASOPHILS % (AUTO) 0.5 % (0.0-5.0); EOSINOPHILS % (AUTO) 2.4 % (0.0-8.0); HEMATOCRIT 39.5 % (36-48); MEAN CORPUSCULAR HEMOGLOBIN 30.7 pg (27.0-33.0); MEAN CORPUSCULAR HGB CONC 32.9 g/dL (32.0-36.0); MEAN CORPUSCULAR VOLUME 93.4 fL (79-99); MONOCYTES % (AUTO) 7.8 % (3.0-13.0); NEUTROPHILS % (AUTO) 46.1 % (40.0-77.0); PLATELET COUNT (AUTO) 223 K/uL (130-400); RED BLOOD CELL COUNT(AUTO) 4.23 MIL/uL (4.00-5.50); RED CELL DISTRIBUTION WIDTH 13.5 % (11.0-15.5); WHITE BLOOD COUNT (AUTO) 8.7 K/uL (4.8-10.8)
[2020-12-11 12:17] LABS: CREATININE 0.9 mg/dL (0.5-1.5); POTASSIUM 3.4 mmol/L (3.5-5.1)
[2020-12-11 12:20] LABS: INR 1.11 (0.85-1.15)
[2020-12-11 12:21] LABS: PARTIAL THROMBOPLASTIN TIME 31.6 SEC (26.3-35.5)
[2020-12-13] VITALS (10 sets, daily range): BP systolic 95–164; BP diastolic 47–74
[~2020-12-13 05:52] MED LIST changes: -ASPI-556 PO; -AUD IH; +BIOT5000 PO; +CARB1TAB33 PO; -DIPH25 PO; +DIPH25CA85 PO; +HYDR12.54 PO; -HYDR4TAB56 PO; +INUL1TAB4 PO; -IOHEXOL 350 MG/ML 100ML INFUS..BTL IV ONE; -IOHEXOL-350 50ML VIAL IV ONE; +IPRA4AER IH; +LEVE500T19 PO; +LIGH1DRO OU; +LOSA100T58 PO; -LOSA1TAB37 PO; +METO-391 PO; +MV-M1TAB57 PO; -PRAV40TA3 PO; -PRED2.5T PO; -ROPI0.257 PO; +ROSU20TA31 PO; -SERT100T12 PO; +TOPI25TA48 PO; +TRAM50TA4 PO; +VITA-395 PO; +cranberry PO; +trilogy IH; +vitamin d PO
[2020-12-13] MEDS ORDERED: BUPIVACAINE/PF 0.25% 30ML VIAL IJ ONE (07:40)
[2020-12-13] MEDS ORDERED: MEPERIDINE-PF 25 MG/ML SYG ONE ×3 (07:40→08:03)
[2020-12-13] MEDS ORDERED: MIDAZOLAM HCL 1 MG/ML 2ML VIAL ONE ×3 (07:40→08:03)
[2020-12-13] MEDS ORDERED: LIDOCAINE HCL 1% MDV 50ML VIAL ONE (07:40)
[2020-12-13] MEDS ORDERED: 0.9%NACL 1000ML 1,000 ML IV SCH (08:00)
[2020-12-13] MEDS ORDERED: CEFAZOLIN SODIUM 1 GM VIAL IVP ONE (08:00)
[2020-12-13] MEDS ORDERED: ACETAMINOPHEN WITH CODEINE 1 TAB TAB PO PRN (09:00)
[2020-12-13] MEDS ORDERED: ACETAMINOPHEN WITH CODEINE 1 TAB TAB ONE (09:32)
== END 2020-12-13 12:40 | disposition home or self-care (01) ==
LOC: DAH 05:52
PROVIDERS: ATTEND Internal Medicine Cardiovascular Disease
DX: R00.1 Bradycardia, unspecified (principal); I48.0 Paroxysmal atrial fibrillation; I25.10 Atherosclerotic heart disease of native coronary artery without angina pectoris; I10 Essential (primary) hypertension; G20 Parkinson's disease; J45.909 Unspecified asthma, uncomplicated; E11.9 Type 2 diabetes mellitus without complications; E66.9 Obesity, unspecified; Z95.0 Presence of cardiac pacemaker; Z88.5 Allergy status to narcotic agent; Z88.6 Allergy status to analgesic agent; Z86.73 Personal history of transient ischemic attack (TIA), and cerebral infarction without residual deficits; Z96.653 Presence of artificial knee joint, bilateral; Z98.84 Bariatric surgery status; Z90.710 Acquired absence of both cervix and uterus; Z90.49 Acquired absence of other specified parts of digestive tract; Z88.1 Allergy status to other antibiotic agents; Z88.7 Allergy status to serum and vaccine; Z79.01 Long term (current) use of anticoagulants; Z79.899 Other long term (current) drug therapy
CPT/HCPCS: 33228; 36415 ×2; 80048; 82948; 84132; 85025; 85610; 85730; 93005; A4215; A4216; A4221; A4222; A4223 ×3; A4606; A4663; A6402; C1785; J0690; J2175 ×3; J2250 ×3; J3490 ×2; 99156; 99157

== ENCOUNTER 2021-08-18 21:31 | Emergency (ER) | payer MEDICARE ==
[~2021-08-18] VITALS: Ht 157.5 cm; Wt 112.0 kg
[2021-08-18 22:21] LABS: BASOPHILS % (AUTO) 0.5 % (0.0-5.0); EOSINOPHILS % (AUTO) 0.6 % (0.0-8.0); HEMATOCRIT 39.8 % (36-48); LYMPHOCYTES % (AUTO) 37.3 % (21.0-51.0); MEAN CORPUSCULAR HEMOGLOBIN 30.5 pg (27.0-33.0); MEAN CORPUSCULAR HGB CONC 31.4 g/dL (32.0-36.0); MEAN CORPUSCULAR VOLUME 97.1 fL (79-99); MONOCYTES % (AUTO) 8.5 % (3.0-13.0); NEUTROPHILS % (AUTO) 52.8 % (40.0-77.0); PLATELET COUNT (AUTO) 201 K/uL (130-400); RED CELL DISTRIBUTION WIDTH 13.8 % (11.0-15.5); WHITE BLOOD COUNT (AUTO) 7.9 K/uL (4.8-10.8)
[2021-08-18] MEDS ORDERED: HYDROMORPHONE 0.5 MG SYG (0.5MG/0.5ML) IVP ONE (22:30)
[2021-08-18 22:49] LABS: ALBUMIN 3.4 g/dL (3.5-5.0); BILIRUBIN,TOTAL 0.3 mg/dL (0.2-1.0)
[2021-08-18 22:53] LABS: POTASSIUM 4.2 mmol/L (3.5-5.1)
[2021-08-18] MEDS ORDERED: HYDROMORPHONE 1 MG INJ IVP ONE (23:30)
[2021-08-18 23:31] VITALS: BP 155/86
[2021-08-19] MEDS ORDERED: TRAM50TA2 PO (00:10)
== END 2021-08-19 00:30 | disposition home or self-care (01) ==
LOC: EDH 21:31
DX: M32.9 Systemic lupus erythematosus, unspecified (principal); R52 Pain, unspecified; J44.9 Chronic obstructive pulmonary disease, unspecified; E11.9 Type 2 diabetes mellitus without complications; E78.00 Pure hypercholesterolemia, unspecified; I10 Essential (primary) hypertension; Z90.89 Acquired absence of other organs; Z88.1 Allergy status to other antibiotic agents; Z88.6 Allergy status to analgesic agent; Z88.8 Allergy status to other drugs, medicaments and biological substances; Z79.899 Other long term (current) drug therapy; Z79.4 Long term (current) use of insulin; Z90.49 Acquired absence of other specified parts of digestive tract; Z98.890 Other specified postprocedural states
CPT/HCPCS: 36415; 71045; 80053; 82550; 84484; 85025; 93005; 96374; 96376; 99285; J1170 ×2

== ENCOUNTER → 2021-11-17 | Outpatient (CLI) | payer MEDICARE ==
[~2021-11-17] MED LIST changes: +TRAM50TA2 PO
== END | disposition home or self-care (01) ==
LOC: RAH 09:53
PROVIDERS: ATTEND Internal Medicine Gastroenterology
DX: K44.9 Diaphragmatic hernia without obstruction or gangrene (principal); K21.9 Gastro-esophageal reflux disease without esophagitis
CPT/HCPCS: 74240

== ENCOUNTER 2021-12-20 16:42 | Emergency (ER) | payer MEDICARE ==
[~2021-12-20] VITALS: Ht 157.5 cm; Wt 114.3 kg
[2021-12-20 16:43] VITALS: BP 178/72
[2021-12-20 17:04] LABS: BASOPHILS % (AUTO) 0.4 % (0.0-5.0); EOSINOPHILS % (AUTO) 0.8 % (0.0-8.0); HEMATOCRIT 38.1 % (36-48); LYMPHOCYTES % (AUTO) 29.7 % (21.0-51.0); MEAN CORPUSCULAR HEMOGLOBIN 30.8 pg (27.0-33.0); MEAN CORPUSCULAR HGB CONC 32.5 g/dL (32.0-36.0); MEAN CORPUSCULAR VOLUME 94.8 fL (79-99); MONOCYTES % (AUTO) 7.6 % (3.0-13.0); PLATELET COUNT (AUTO) 201 K/uL (130-400); RED BLOOD CELL COUNT(AUTO) 4.02 MIL/uL (4.00-5.50); RED CELL DISTRIBUTION WIDTH 14.8 % (11.0-15.5); WHITE BLOOD COUNT (AUTO) 9.6 K/uL (4.8-10.8)
[2021-12-20 17:11] LABS: CREATININE 0.9 mg/dL (0.5-1.5); POTASSIUM 4.2 mmol/L (3.5-5.1)
[2021-12-20 17:21] LABS: ALBUMIN 3.2 g/dL (3.5-5.0)
[2021-12-20 17:55] LABS: CREATINE KINASE, TOTAL 58 U/L (21-232); CRP QUANTITATIVE < 2.00 mg/L (0.00-9.0)
[2021-12-20] MEDS ORDERED: HYD25 PO (18:11)
[2021-12-20] MEDS ORDERED: PRED20TA3 PO (18:11)
[2021-12-20] MEDS ORDERED: HYDROCODONE/ACETAMINOPHEN 10/325 MG TAB PO ONE (18:30)
[2021-12-20] MEDS ORDERED: ONDANSETRON ODT 4MG TAB SL ONE (18:30)
[2021-12-20] MEDS ORDERED: PREDNISONE 20 MG TABLET PO ONE (18:30)
== END 2021-12-20 19:01 | disposition home or self-care (01) ==
LOC: EDH 16:42
DX: L29.9 Pruritus, unspecified (principal); M32.9 Systemic lupus erythematosus, unspecified; R52 Pain, unspecified; J44.9 Chronic obstructive pulmonary disease, unspecified; E11.9 Type 2 diabetes mellitus without complications; E78.00 Pure hypercholesterolemia, unspecified; I10 Essential (primary) hypertension; Z88.1 Allergy status to other antibiotic agents; Z88.6 Allergy status to analgesic agent; Z88.7 Allergy status to serum and vaccine; Z79.899 Other long term (current) drug therapy; Z86.73 Personal history of transient ischemic attack (TIA), and cerebral infarction without residual deficits; Z90.89 Acquired absence of other organs; Z98.890 Other specified postprocedural states; Z90.49 Acquired absence of other specified parts of digestive tract
CPT/HCPCS: 36415; 71045; 80053; 82550; 84484; 85025; 86140; 93005

== ENCOUNTER → 2022-01-27 | Outpatient (CLI) | payer MEDICARE ==
[~2022-01-27] MED LIST changes: +HYD25 PO; +PRED20TA3 PO; +REGADENOSON 0.4 MG/5 ML PF SYG IVP SCH
== END | disposition home or self-care (01) ==
LOC: SHCH 01-26 09:11
PROVIDERS: ATTEND Internal Medicine Cardiovascular Disease
DX: Z01.818 Encounter for other preprocedural examination (principal); I25.10 Atherosclerotic heart disease of native coronary artery without angina pectoris; Z79.899 Other long term (current) drug therapy
CPT/HCPCS: 78452; 96374; 93017; J2785; A9500 ×2

== ENCOUNTER 2023-07-07 06:01 | Observation (INO) | payer MEDICARE ==
[2023-07-02 11:18] VITALS: BP 144/87; PULSE 92; RESP 18
[2023-07-02 11:50] LABS: BASOPHILS # (AUTO) 0.02 K/uL (0.00-0.20); BASOPHILS % (AUTO) 0.3 % (0.0-5.0); EOSINOPHILS # (AUTO) 0.15 K/uL (0.00-0.70); EOSINOPHILS % (AUTO) 2.1 % (0.0-8.0); HEMATOCRIT 40.2 % (36-48); IMMATURE GRANULOCYTE ABSOLUTE 0.03 K/uL (0-1); LYMPHOCYTES # (AUTO) 2.8 K/uL (1.0-4.8); MEAN CORPUSCULAR HEMOGLOBIN 30.3 pg (27.0-33.0); MEAN CORPUSCULAR HGB CONC 32.1 g/dL (32.0-36.0); MEAN CORPUSCULAR VOLUME 94.4 fL (79-99); MONOCYTES # (AUTO) 0.5 K/uL (0.1-1.0); MONOCYTES % (AUTO) 7.2 % (3.0-13.0); NEUTROPHILS # (AUTO) 3.8 K/uL (1.8-7.7); PLATELET COUNT (AUTO) 197 K/uL (130-400); RED BLOOD CELL COUNT(AUTO) 4.26 MIL/uL (4.00-5.50); RED CELL DISTRIBUTION WIDTH 13.7 % (11.0-15.5); WHITE BLOOD COUNT (AUTO) 7.2 K/uL (4.8-10.8)
[2023-07-02 11:54] LABS: APPEARANCE,URINE TURBID (CLEAR); BILIRUBIN,URINE NEGATIVE (NEGATIVE); COLOR,URINE YELLOW (YELLOW); GLUCOSE, URINE (UA) NEGATIVE (NEGATIVE); KETONES,URINE NEGATIVE (NEGATIVE); LEUKOCYTE ESTERASE ,URINE 500 Leu/uL (NEGATIVE); NITRATE,URINE NEGATIVE (NEGATIVE); PH,URINE 5.5 (5.0-8.0); PROTEIN,URINE 10 mg/dL (NEGATIVE); UROBILINOGEN,URINE 0.2 mg/dL (0.2-1.0)
[2023-07-02 12:04] LABS: ALBUMIN 3.4 g/dL (3.5-5.0); CARBON DIOXIDE 32 mmol/L (21-32); CHLORIDE 103 mmol/L (101-111); CREATININE 0.9 mg/dL (0.5-1.0); GLOMERULAR FILTR. RATE CALC 68 mL/min (>90); GLUCOSE,RANDOM 68 mg/dL (70-105); POTASSIUM 3.8 mmol/L (3.5-5.1); SODIUM SERUM 141 mmol/L (136-145); UREA NITROGEN, BLOOD 24 mg/dL (7-18)
[2023-07-02 12:07] LABS: INR 0.97 (0.85-1.15); PROTHROMBIN TIME 11.5 SEC (9.6-11.6)
[2023-07-02 12:10] LABS: ADD UA MICROSCOPIC YES
[2023-07-02 13:14] LABS: BACTERIA,URINE Many /HPF (None Seen); RBC,URINE 0-1 /HPF (0-1); SQUAMOUS EPITHELIAL CELL,UR 0-2 /HPF (0-2); WBC,URINE 26-50 /HPF (0-1)
[2023-07-07] VITALS (32 sets, daily range): BP systolic 111–168; BP diastolic 50–86; PULSE 66–77; RESP 13–20; O2SAT 99–100
[~2023-07-07] VITALS: Ht 157.5 cm; Wt 84.4 kg
[~2023-07-07 06:01] MED LIST changes: +AUD IH; -BIOT5000 PO; +CHOL2000 PO; -DIPH25CA85 PO; +DIPH50 PO; +DOCU100T PO; -HYD25 PO; -HYDR12.54 PO; -INUL1TAB4 PO; -IPRA4AER IH; -LIGH1DRO OU; -LOSA100T58 PO; +LOSA100T59 PO; +MELA10CA2 PO; -METO-391 PO; +METO-409 PO; -MV-M1TAB57 PO; -NITR1PAT10 TD; -PRED20TA3 PO; -REGADENOSON 0.4 MG/5 ML PF SYG IVP SCH; -ROSU20TA31 PO; +ROSU20TA73 PO; +SEMA2PEN SQ; -TOPI25TA48 PO; -TRAM50TA2 PO; -VALA500T42 PO; -VITA-395 PO; -cranberry PO; -vitamin d PO
[2023-07-07] MEDS ORDERED: KETOROLAC 30MG VIAL (30MG/ML) ONE (07:04)
[2023-07-07] MEDS ORDERED: ROPIVACAINE 0.5% 5MG/ML 30ML ONE (07:04)
[2023-07-07] MEDS ORDERED: LIDOCAINE PF 100MG/5ML (2%) SYRINGE 5ML ONE (07:07)
[2023-07-07] MEDS ORDERED: PROPOFOL 10 MG/ML 20ML VIAL IV ONE (07:07)
[2023-07-07] MEDS ORDERED: FENTANYL CITRATE PF 50 MCG/1 ML 2ML VIAL ONE (07:08)
[2023-07-07] MEDS ORDERED: ROCURONIUM BROMIDE 10MG/1ML 5ML VL ONE ×2 (07:08→08:01)
[2023-07-07] MEDS ORDERED: MIDAZOLAM HCL 1 MG/ML 2ML VIAL ONE (07:08)
[2023-07-07] MEDS ORDERED: SCOPOLAMINE HYDROBROMIDE 1 EACH ADH..PATCH TD ONE (07:11)
[2023-07-07] MEDS ORDERED: KETAMINE 50MG/ML SYRINGE 50 MG/ML DISP.SYRIN ONE (07:12)
[2023-07-07] MEDS: ACETAMINOPHEN 1,000 MG/100 ML VIAL IV ONE (07:14)
[2023-07-07] MEDS: FAMOTIDINE 20MG VIAL IV ONE (07:14)
[2023-07-07] MEDS: CEFAZOLIN SODIUM 2 GM VIAL ONE (07:45)
[2023-07-07] MEDS: ROPIVACAINE 0.5% 5MG/ML 30ML IR ONE ×2 (08:00→09:36)
[2023-07-07] MEDS ORDERED: ONDANSETRON 4MG INJ ONE (08:03)
[2023-07-07] MEDS ORDERED: DEXAMETHASONE SOD PHOSPHATE 10MG/ML 1ML VIAL ONE (08:04)
[2023-07-07] MEDS: 0.9%NACL 1000ML 1,000 ML IV ONE (08:29)
[2023-07-07] MEDS: SUGAMMADEX SODIUM 200 MG/2 ML VIAL IV ONE (09:37)
[2023-07-07] MEDS ORDERED: CALCIUM CARB 500MG PO PRN (10:30)
[2023-07-07] MEDS ORDERED: POTASSIUM CHLORIDE 20MEQ/100ML 100 ML IV PRN (10:30)
[2023-07-07] MEDS: [UNRECOGNIZED DRUG - REMARK] MISC SCH (10:30)
[2023-07-07] MEDS ORDERED: KCL 20 MEQ ERTAB PO PRN (10:30)
[2023-07-07] MEDS ORDERED: POTASSIUM CHLORIDE 10% ELIXIR 20 MEQ/15 ML UDCUP PO PRN (10:30)
[2023-07-07] MEDS: 0.9%NACL 1000ML 1,000 ML IV SCH (10:30)
[2023-07-07] MEDS ORDERED: FE FUMARATE/FA/MV, MIN COMB#15 1 TAB PO PRN (10:30)
[2023-07-07] MEDS: INSULIN HUMULIN R 100 UNIT/ML 3ML SQ SCH (11:30)
[2023-07-07] MEDS: KETOROLAC 15MG/ML VIAL (15MG/ML) IV SCH (11:47)
[2023-07-07] MEDS: ONDANSETRON 4MG INJ ONE (11:48)
[2023-07-07] MEDS: MEPERIDINE-PF 25 MG/ML SYG ONE (11:48)
[2023-07-07] MEDS: KETOROLAC 15MG/ML VIAL (15MG/ML) ONE (12:40)
[2023-07-07] MEDS: HYDRALAZINE 20MG/ML VIAL ONE (12:41)
[2023-07-07] MEDS: GABAPENTIN 100 MG CAPSULE PO SCH (14:00)
[2023-07-07] MEDS: CEFAZOLIN SODIUM 2 GM VIAL IVPB SCH (15:30)
[2023-07-07] MEDS: DOCUSATE SODIUM 100 MG CAP PO SCH (19:40)
[2023-07-07] MEDS: NITROFURANTOIN MONOHYD/M-CRYST 100 MG CAPSULE PO SCH (19:40)
[2023-07-07] MEDS: HYDROCODONE/ACETAMINOPHEN 5/325 MG TAB PO PRN (22:31)
[2023-07-07] MEDS ORDERED: ALBUTEROL SULFATE 2.5 MG IH SCH (23:45)
[2023-07-08] VITALS: BP 120/60; PULSE 69; RESP 16
[2023-07-08] MEDS ORDERED: TEMAZEPAM 30 MG CAP PO SCH
[2023-07-08 03:47] LABS: HEMATOCRIT 27.9 % (36-48); MEAN CORPUSCULAR HEMOGLOBIN 30.6 pg (27.0-33.0); MEAN CORPUSCULAR HGB CONC 32.6 g/dL (32.0-36.0); MEAN CORPUSCULAR VOLUME 93.9 fL (79-99); RED BLOOD CELL COUNT(AUTO) 2.97 MIL/uL (4.00-5.50); RED CELL DISTRIBUTION WIDTH 13.6 % (11.0-15.5)
[2023-07-08 04:00] VITALS: BP 117/45; PULSE 73; RESP 14
[2023-07-08 04:16] LABS: CREATININE 1.1 mg/dL (0.5-1.0); POTASSIUM 4.2 mmol/L (3.5-5.1)
[2023-07-08 08:00] VITALS: O2SAT 99
[2023-07-08 08:10] VITALS: BP 135/90; PULSE 71; RESP 16
[2023-07-08] MEDS: TRILOGY IH SCH (09:00)
[2023-07-08] MEDS: DIPHENHYDRAMINE HCL 50 MG CAPSULE PO SCH (09:52)
[2023-07-08] MEDS: POLYETHYLENE GLYCOL 3350 17 GM POWD.PACK PO SCH (09:53)
[2023-07-08] MEDS: CHOLECALCIFEROL 50 MCG PO SCH (09:53)
[2023-07-08] MEDS: LOSARTAN 100 MG TABLET PO SCH (09:54)
[2023-07-08] MEDS: PANTOPRAZOLE 40 MG TAB DR PO SCH (09:54)
[2023-07-08] MEDS: TRAMADOL HCL 50 MG TABLET PO PRN (10:03)
[2023-07-08] MEDS ORDERED: KETOROLAC 15MG/ML VIAL (15MG/ML) IV PRN (10:30)
[2023-07-08] MEDS: LEVETIRACETAM 500 MG TABLET PO SCH (12:00)
[2023-07-08 12:28] VITALS: BP 137/67; PULSE 71; RESP 16
[2023-07-08] MEDS ORDERED: NITR100C4 PO (12:51)
[2023-07-08] MEDS ORDERED: DOCU-116 PO (12:51)
[2023-07-08] MEDS ORDERED: HYDR-4060 PO (12:51)
[2023-07-08] MEDS ORDERED: GABA100C PO (12:51)
[2023-07-08] MEDS: ONDANSETRON 4MG INJ IVP PRN (14:53)
[2023-07-08 17:43] VITALS: BP 112/57; PULSE 76; RESP 16
[2023-07-08] MEDS ORDERED: METOPROLOL SUCCINATE 50 MG TAB.SR.24H PO SCH (21:00)
[2023-07-08] MEDS ORDERED: NON-FORMULARY MEDICATION 1 EACH (Esomeprazole Magnesium 40 MG) PO SCH (21:00)
[2023-07-08] MEDS ORDERED: ATORVASTATIN 40 MG TABLET PO SCH (21:00)
[2023-07-08] MEDS ORDERED: CARBIDOPA LEVODOPA PO SCH (21:00)
[2023-07-08] MEDS ORDERED: MELATONIN 5 MG TABLET PO SCH (21:00)
[2023-07-08] MEDS ORDERED: NON-FORMULARY MEDICATION 1 EACH (Rosuvastatin Calcium 20 MG) PO SCH (21:00)
[2023-07-09] MEDS ORDERED: FUROSEMIDE 20 MG TABLET PO SCH (09:00)
[2023-07-10] MEDS ORDERED: BISACODYL 10 MG SUPP.RECT RC PRN (10:30)
== END 2023-07-08 16:30 | disposition home or self-care (01) ==
LOC: DAH 06:01 → DAHIP 06:02 → 4DH 13:50
PROVIDERS: ADMIT Student in an Organized Health Care Education/Training Program; ATTEND Student in an Organized Health Care Education/Training Program
DX: M19.111 Post-traumatic osteoarthritis, right shoulder (principal); D62 Acute posthemorrhagic anemia; M24.811 Other specific joint derangements of right shoulder, not elsewhere classified; I10 Essential (primary) hypertension; E78.5 Hyperlipidemia, unspecified; E11.9 Type 2 diabetes mellitus without complications; E66.9 Obesity, unspecified; I25.10 Atherosclerotic heart disease of native coronary artery without angina pectoris; J44.9 Chronic obstructive pulmonary disease, unspecified; Z79.899 Other long term (current) drug therapy
CPT/HCPCS: 82040; 80048 ×2; 85025; 85610; 85730; 87077; 87088; 87186; 84134; 86140; 81001; 36415 ×2; 87641; 23472; 96376 ×2; 96365; 96366; 96375 ×2; 82948 ×5; 97161; 73030; 97116 ×3; 97530 ×7; 85027; G0378 ×27; A4663; J7030 ×2; A4565; C1776; J3490 ×4; J3010; J1100; J2001; J0360; J2250; J2704; J2405 ×3; J1885 ×6; J2175; J2795 ×2; J0690 ×3; A6446; G0168; A4930; A6254; A4215; A4223; A4222; A4221; Q0163